=== PATIENT | female | born 2000 | race Caucasian/White ===

== ENCOUNTER 2018-09-12 17:46 | Day surgery (SDC) | payer OTHER ==
[~2018-09-12] VITALS: Ht 170.2 cm; Wt 86.2 kg
[2018-09-12] VITALS (8 sets, daily range): BP systolic 92–132; BP diastolic 55–87
--- OUTSIDE RECORDS SUMMARY | 2018-09-12 17:51 | XMS REPORT | Continuity of Care Document ---
Author Organization Unknown Address Unknown Allergies There is no data. Medications There is no data. Problems Date Dx Coded Attending Type Code Diagnosis Diagnosed By 06/05/2012 Behzad Majano MD Final 079.99 VIRAL INFECTION NOS 06/05/2012 Behzad Majano MD Admitting 780.60 FEVER NOS 06/05/2012 Behzad Majano MD 784.0 HEADACHE Procedures There is no data. Results There is no data. Encounters ACCT No. Visit Date/Time Discharge Status Pt. Type Provider Facility Loc./Unit Complaint [id number] 06/05/2012 20:36:00 06/05/2012 22:36:00 DIS Emergency Behzad Majano MD Via [facility] on [facility]
[2018-09-12] MEDS ORDERED: LACTATED RINGERS 1,000 ML IV ONE ×3 (18:18→22:47)
[2018-09-12 18:28] LABS: BASOPHILS % (AUTO) 0 % (0-10); EOSINOPHILS # (AUTO) 0.1 10^3/uL (0.0-0.3); EOSINOPHILS % (AUTO) 1 % (0-10); HEMATOCRIT 41 % (35-52); HEMOGLOBIN 13.3 G/DL (11.5-16.0); LYMPHOCYTES # (AUTO) 2.4 X 10^3 (1.0-4.0); LYMPHOCYTES % (AUTO) 19 % (12-44); MEAN CORPUSCULAR HEMOGLOBIN 27 PG (25-34); MEAN CORPUSCULAR HGB CONC 32 G/DL (32-36); MEAN CORPUSCULAR VOLUME 84 FL (80-99); MEAN PLATELET VOLUME 10.6 FL (7.4-10.4); MONOCYTES # (AUTO) 0.9 X 10^3 (0.0-1.0); MONOCYTES % (AUTO) 7 % (0-12); NEUTROPHILS # (AUTO) 9.3 X 10^3 (1.8-7.8); NEUTROPHILS % (AUTO) 73 % (42-75); PLATELET COUNT 344 10^3/uL (130-400); RED CELL DISTRIBUTION WIDTH 14.3 % (10.0-14.5); WHITE BLOOD COUNT 12.8 10^3/uL (4.3-11.0)
--- NOTE | 2018-09-12 18:36 | ED Abdominal Pain ---
General Chief Complaint: Abdominal/GI Problems Stated Complaint: ABD PAIN Nursing Triage Note: PT AMB TO TRIAGE WITH COMPLAINT OF RLQ PAIN. STATES STARTED LAST NIGHT. DENIES N/V. STATES SHE HAD A VERY SOFT BOWEL MOVEMENT LAST NIGHT. PT WAS TREATED FOR UTI 2 WEEKS AGO. STATES FINISHED TREATMENT. PT WAS SENT OVER FROM [facility]. LMP 09/10/18. Sepsis Screen: No Definite Risk Source of Information: Patient History of Present Illness Date Seen by Provider: September 12, 2018 Time Seen by Provider: 18:16 Initial Comments PT ARRIVES VIA POV --SENT HERE FROM [facility] PT C/O RLQ PAIN SINCE 2229 LAST NIGHT PAIN IS CONSTANT, WORSENED BY MOVEMENTS,WALKING, COUGHING, SNEEZING, ETC NO RADIATION OF PAIN STATES NOTHING IMPROVES PAIN--TOOK IBUPROFEN AT 0100 LAST NIGHT, AND WAS ABLE TO SLEEP FOR REST OF NIGHT C/O NAUSEA AND DECREASED APPETITE, NO VOMITING. ATE A FEW BITES OF SUSHI AROUND NOON, HAS ONLY HAD A SMALL AMOUNT OF TEA TODAY TO DRINK VOIDING A NORMAL AMOUNT AND NO URINARY SYMPTOMS NO FEVER HAD NORMAL BM AT MIDNIGHT LMP --BEGAN Wednesday09/10/18. 1 WEEK LATE ,NO CONTROL. WAS TREATED FOR UTI 2 WEEKS AGO AT [facility]. 08/27/18 TREATED WITH BACTRIM X 7 DAYS. THOSE SYMPTOMS RESOLVED. Allergies and Home Medications Allergies Coded Allergies: No Known Drug Allergies (Unverified , 09/12/18) Patient Home Medication List Home Medication List Reviewed: Yes Review of Systems Review of Systems Constitutional: see HPI; No fever; other (DECREASED APPETITE) Respiratory: No Symptoms Reported Cardiovascular: No Symptoms Reported Gastrointestinal: See HPI, Abdominal Pain; Denies Constipated, Denies Diarrhea ; Nausea, Poor Appetite, Poor Fluid Intake; Denies Vomiting Genitourinary: No Symptoms Reported, See HPI; Denies Flank Pain Musculoskeletal: no symptoms reported; No back pain Skin: no symptoms reported Psychiatric/Neurological: No Symptoms Reported Endocrine: No Symptoms Reported Hematologic/Lymphatic: No Symptoms Reported Past Ciwbmjc-Sdqsnd-Mtuaqv Hx Patient Social History Alcohol Use: Occasionally Uses Recreational Drug Use: No Smoking Status: Never a Smoker Recent Foreign Travel: No Contact w/Someone Who Travel: No Recent Infectious Disease Expo: No Recent Hopitalizations: No Immunizations Up To Date Tetanus Booster (TDap): Less than 5yrs PED Vaccines UTD: Yes Seasonal Allergies Seasonal Allergies: Yes Past Medical History Surgeries: Yes (SINUS SURGERY; BMT'S ; CLOSED REDUCTION LEFT WRIST) Adenoidectomy, Ear Surgery, Tonsillectomy Respiratory: No Cardiac: No Neurological: No : No Reproductive Disorders: No Genitourinary: No Gastrointestinal: No Musculoskeletal: No Endocrine: Yes (LEFT WRIST FX-S/P CLOSED REDUCTION) HEENT: Yes (SINUS PROBLEMS--S/P SURGERY) Chronic Ear Infection, Tonsilitis Cancer: No Psychosocial: No Integumentary: No Blood Disorders: No Physical Exam Vital Signs Vital Signs - First Documented 09/12/18 17:50 Temp 98.4 Pulse 105 Resp 20 B/P (MAP) 127/95 (106) Pulse Ox 97 O2 Delivery Room Air Capillary Refill : Less Than 3 Seconds Height/Weight/BMI Height: 5'7.00" Weight: 190lbs. oz. 86.201530dr; BMI Method:Stated General Appearance: WD/WN, no apparent distress, other (LAYING FLAT AND OUTSTRETCHED. 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, no motor/sensory deficits, alert, normal mood/affect, oriented x 3 Skin: normal color, warm/dry; No rash Progress/Results/Core Measures Results/Orders Lab Results Laboratory Tests Test 09/12/18 18:15 09/12/18 19:35 Range/Units White Blood Count 12.8 H 4.3-11.0 10^3/uL Red Blood Count 4.94 4.35-5.85 10^6/uL Hemoglobin 13.3 11.5-16.0 G/DL Hematocrit 41 35-52 % Mean Corpuscular Volume 84 80-99 FL Mean Corpuscular Hemoglobin 27 25-34 PG Mean Corpuscular Hemoglobin Concent 32 32-36 G/DL Red Cell Distribution Width 14.3 10.0-14.5 % Platelet Count 344 130-400 10^3/uL Mean Platelet Volume 10.6 H 7.4-10.4 FL Neutrophils (%) (Auto) 73 42-75 % Lymphocytes (%) (Auto) 19 12-44 % Monocytes (%) (Auto) 7 0-12 % Eosinophils (%) (Auto) 1 0-10 % Basophils (%) (Auto) 0 0-10 % Neutrophils # (Auto) 9.3 H 1.8-7.8 X 10^3 Lymphocytes # (Auto) 2.4 1.0-4.0 X 10^3 Monocytes # (Auto) 0.9 0.0-1.0 X 10^3 Eosinophils # (Auto) 0.1 0.0-0.3 10^3/uL Basophils # (Auto) 0.0 0.0-0.1 10^3/uL Sodium Level 140 135-145 MMOL/L Potassium Level 4.1 3.6-5.0 MMOL/L Chloride Level 107 98-107 MMOL/L Carbon Dioxide Level 24 21-32 MMOL/L Anion Gap 9 5-14 MMOL/L Blood Urea Nitrogen 10 7-18 MG/DL Creatinine 0.70 0.60-1.30 MG/DL Estimat Glomerular Filtration Rate > 60 BUN/Creatinine Ratio 14 Glucose Level 92 70-105 MG/DL Calcium Level 9.6 8.5-10.1 MG/DL Corrected Calcium 9.4 8.5-10.1 MG/DL Total Bilirubin 0.3 0.1-1.0 MG/DL Aspartate Amino Transf (AST/SGOT) 15 5-34 U/L Alanine Aminotransferase (ALT/SGPT) 18 0-55 U/L Alkaline Phosphatase 135 40-136 U/L Total Protein 8.1 6.4-8.2 GM/DL Albumin 4.3 3.2-4.5 GM/DL Amylase Level 34 25-125 U/L Lipase 15 8-78 U/L Serum Test, Qualitative NEGATIVE NEGATIVE Urine Color YELLOW Urine Clarity CLEAR Urine pH 6.5 5-9 Urine Specific [place] 1.010 L 1.016-1.022 Urine Protein NEGATIVE NEGATIVE Urine Glucose (UA) NEGATIVE NEGATIVE Urine Ketones NEGATIVE NEGATIVE Urine Nitrite NEGATIVE NEGATIVE Urine Bilirubin NEGATIVE NEGATIVE Urine Urobilinogen NORMAL NORMAL MG/DL Urine Leukocyte Esterase NEGATIVE NEGATIVE Urine RBC (Auto) 4+ H NEGATIVE Urine RBC 0-2 /HPF Urine WBC RARE /HPF Urine Squamous Epithelial Cells 5-10 /HPF Urine Crystals NONE /LPF Urine Bacteria NEGATIVE /HPF Urine Casts NONE /LPF Urine Mucus NEGATIVE /LPF Urine Culture Indicated NO My Orders Orders - YESSI LEMONS DO Urine Bedside (09/12/18 18:16) Ua Culture If Indicated (09/12/18 18:16) Amylase (09/12/18 18:18) Cbc With Automated Diff (09/12/18 18:18) Comprehensive Metabolic Panel (09/12/18 18:18) Hcg,Qualitative Serum (09/12/18 18:18) Lipase (09/12/18 18:18) Ed Iv/Invasive Line Start (09/12/18 18:18) Lactated Ringers (Lr 1000 Ml Iv Solution (09/12/18 18:18) Ct Abd/Pelv W (Appendicitis) (09/12/18 18:49) Acute Abd Series (09/12/18 18:49) Iohexol Injection (Omnipaque 350 Mg/Ml 1 (09/12/18 19:15) Received Contrast (Hold Metformin- Contr (09/12/18 19:15) Ketorolac Injection (Toradol Injection) (09/12/18 19:45) Medications Given in ED Current Medications Medications Dose Ordered Sig/Bhargav Route Start Time Stop Time Status Last Admin Dose Admin Iohexol 100 ml ONCE ONCE IV 09/12/18 19:15 09/12/18 19:29 DC 09/12/18 19:12 100 ML Ketorolac Tromethamine 30 mg ONCE ONCE IVP 09/12/18 19:45 09/12/18 19:46 DC 09/12/18 20:46 30 MG Lactated Ringer's 1,000 ml @ 0 mls/hr Q0M ONCE IV 09/12/18 18:18 09/12/18 18:20 DC 09/12/18 18:40 0 MLS/HR Vital Signs/I&O 09/12/18 17:50 Temp 98.4 Pulse 105 Resp 20 B/P (MAP) 127/95 (106) Pulse Ox 97 O2 Delivery Room Air Blood Pressure Mean: 106 Progress Progress Note : Progress Note PT DECLINES ANY PAIN MEDICATIONS. NO C/O NAUSEA DURING ER STAY Diagnostic Imaging Comments ABDOMEN XRAYS--NO ACUTE PROCESS CT ABDOMEN/PELVIS--+ APPENDICITIS, NO PERFORATION OR ABSCESS PER RADIOLOGIST REPORTS @ 1940 Reviewed: Reviewed by Me Departure Communication (Admissions) 1942--SPOKE WITH DR. GODFREY, WILL BE IN TO SEE PT 2107--DR. GODFREY AND OR STAFF HERE. Impression Primary Impression: Appendicitis Disposition: ADMITTED INPATIENT (TO SURGERY) Condition: Stable Admissions Decision to Admit Reason: Admit from ER (General) (TO SURGERY) Decision to Admit/Date: September 12, 2018 Time/Decision to Admit Time: 19:40 Departure-Patient Inst. Referrals: NO,LOCAL PHYSICIAN (PCP/Family) Primary Care Physician YESSI LEMONS DO September 12, 2018 18:36
[2018-09-12 18:55] LABS: ALANINE AMINOTRANSFERASE 18 U/L (0-55); ALBUMIN 4.3 GM/DL (3.2-4.5); ALKALINE PHOSPHATASE 135 U/L (40-136); AMYLASE 34 U/L (25-125); BILIRUBIN,TOTAL 0.3 MG/DL (0.1-1.0); BUN/CREATININE RATIO 14; CALCIUM 9.6 MG/DL (8.5-10.1); CARBON DIOXIDE 24 MMOL/L (21-32); CHLORIDE 107 MMOL/L (98-107); GFR ESTIMATED > 60; GLUCOSE 92 MG/DL (70-105); LIPASE 15 U/L (8-78); POTASSIUM 4.1 MMOL/L (3.6-5.0); SODIUM 140 MMOL/L (135-145); TOTAL PROTEIN 8.1 GM/DL (6.4-8.2)
[2018-09-12] MEDS ORDERED: HOLD METFORMIN - RECEIVED CONTRAST 20 ML VIAL IV SCH (19:15)
[2018-09-12] MEDS ORDERED: IOHEXOL 350 MG/ML 100 ML (OMNIPAQUE 350) VIAL IV ONE (19:15)
--- NOTE | 2018-09-12 19:18 | NUR ---
PT BACK FROM CT, REPORT OF HIVE TO ABDOMEN BY CT. TECH. ERP NOTIFIED.
--- NOTE | 2018-09-12 19:20 | NUR ---
ERP AT BEDSIDE, PT REPORTS 1 ITCHY SPOT TO RIGHT UPPER ABDOMEN. DENIES OTHER COMPLAINTS. DENIES NEEDS AT THIS TIME. IV FLUIDS INFUSING WITHOUT DIFFICULTY.
--- NOTE | 2018-09-12 19:30 | Diagnostic Imaging Report ---
CLINICAL INDICATION: Patient with right lower quadrant pain x1 day with nausea. EXAMS: X-ray of the chest PA view and x-ray of the abdomen supine and upright views. COMPARISONS: None. FINDINGS: LUNGS/ PLEURA: Lungs are clear. There is no pneumothorax. There is no pleural effusion. MEDIASTINUM: Unremarkable. PULMONARY VASCULATURE: Unremarkable. HEART: Unremarkable. BONES/ EXTRATHORACIC SOFT TISSUE: Unremarkable. ABDOMEN AND PELVIS: Unremarkable x-ray of the abdomen with nonobstructed bowel gas pattern. There is no evidence of abdominal free air. There is a small amount of stool seen within the right colon and transverse colon regions and small amount in the rectosigmoid region. There are no focal calcifications overlying the expected regions/ pathways of both kidneys, ureters, and bladder regions. IMPRESSION: 1: Unremarkable chest x-ray exam with no radiographic evidence of acute cardiopulmonary process. 2: Unremarkable x-ray of the abdomen. Dictated by: Dictated on workstation # [id number]
--- NOTE | 2018-09-12 19:31 | Diagnostic Imaging Report ---
PROCEDURE: CT abdomen and pelvis with contrast, rule out appendicitis. TECHNIQUE: Multiple contiguous axial images were obtained through the abdomen and pelvis after the administration of intravenous contrast. INDICATION: Right lower quadrant abdominal pain with nausea No focal hepatic, gallbladder, pancreatic, adrenal gland, splenic or renal abnormality is identified. There is a small hiatal hernia. There is no free fluid in the abdomen. Occasional mildly prominent mesenteric lymph nodes are noted. There is mild enlargement of the appendix with mild surrounding edema and/or inflammation. Probable dominant cyst is noted in the left ovary. Otherwise, the bladder is unremarkable in appearance. IMPRESSION: Findings are consistent with acute appendicitis without evidence of periappendiceal abscess or perforation. Dictated by: Dictated on workstation # [id number]
[2018-09-12 19:43] LABS: BILIRUBIN,URINE NEGATIVE (NEGATIVE); CLARITY,URINE CLEAR; COLOR,URINE YELLOW; GLUCOSE, URINE (UA) NEGATIVE (NEGATIVE); KETONES,URINE NEGATIVE (NEGATIVE); LEUKOCYTE ESTERASE ,URINE NEGATIVE (NEGATIVE); NITRITE,URINE NEGATIVE (NEGATIVE); PH,URINE 6.5 (5-9); PROTEIN,URINE NEGATIVE (NEGATIVE); UROBILINOGEN,URINE NORMAL (NORMAL)
[2018-09-12] MEDS ORDERED: KETOROLAC 30 MG/ML VIAL IVP ONE (19:45)
--- NOTE | 2018-09-12 19:45 | NUR ---
CONSENT OBTAINED FOR SURGERY. PT DENIES COMPLAINTS/NEEDS AT THIS TIME.
[2018-09-12 19:51] LABS: BACTERIA,URINE NEGATIVE /HPF; RBC,URINE 0-2 /HPF; WBC,URINE RARE /HPF
--- NOTE | 2018-09-12 19:55 | NUR ---
PT DECLINED TORADOL AT THIS TIME.
--- OUTSIDE RECORDS SUMMARY | 2018-09-12 19:55 | XMS REPORT | Continuity of Care Document ---
[...] Status Pt. Type Provider Facility Loc./Unit Complaint [id number] 06/05/2012 20:36:00 06/05/2012 22:36:00 DIS Emergency Behzad Majano MD Via [facility] on [facility]
--- NOTE | 2018-09-12 20:42 | NUR ---
Deep [employer] LIAISON HERE TO SEE PT.
--- NOTE | 2018-09-12 20:45 | NUR ---
HIVE ON ABDOMEN AFTER RETURNING FROM CT GONE.
[2018-09-12] MEDS ORDERED: HYDROmorphone 2 MG/ML VIAL (DILAUDID) ONE (20:56)
[2018-09-12] MEDS ORDERED: BUP/EPI 0.5% 1:200,000 (SENSORCAINE) 30 ML VIAL ONE (20:58)
[2018-09-12] MEDS ORDERED: LIDOCAINE 1% INJ 20 ML 20 ML VIAL ONE (20:58)
[2018-09-12] MEDS ORDERED: MEPERIDINE (DEMEROL) INJ 50 MG/ML IVP ONE (21:00)
[2018-09-12] MEDS ORDERED: morphine INJ 10 MG/ML 1ML (SYR OR VIAL) IVP ONE (21:00)
[2018-09-12] MEDS ORDERED: ONDANSETRON 4 MG/2 ML (SDV) Z0FRAN IVP PRN (21:00)
[2018-09-12] MEDS ORDERED: fentaNYL INJECTION 100 MCG/2 ML AMP IVP ONE (21:00)
[2018-09-12] MEDS ORDERED: MIDAZOLAM 2 MG/2 ML (VERSED) VIAL ONE (21:03)
--- NOTE | 2018-09-12 21:08 | NUR ---
OR STAFF HERE, DR GODFREY AT BEDSIDE.
[2018-09-12] MEDS ORDERED: ceFAZolin INJECTION 2,000 MG ONE (21:18)
--- NOTE | 2018-09-12 21:27 | Consultation (Surgery) ---
History of Present Illness History of Present Illness Patient Consulted On(joseph/time) 09/12/18 21:22 Time Seen by Provider: 21:01 History of Present Illness Surgery asked to consult regarding appendicitis. HPI per ED: PT ARRIVES VIA POV --SENT HERE FROM [facility] PT C/O RLQ PAIN SINCE 0 LAST NIGHT PAIN IS CONSTANT, WORSENED BY MOVEMENTS,WALKING, COUGHING, SNEEZING, ETC NO RADIATION OF PAIN STATES NOTHING IMPROVES PAIN--TOOK IBUPROFEN AT 0100 LAST NIGHT, AND WAS ABLE TO SLEEP FOR REST OF NIGHT C/O NAUSEA AND DECREASED APPETITE, NO VOMITING. ATE A FEW BITES OF SUSHI AROUND NOON, HAS ONLY HAD A SMALL AMOUNT OF TEA TODAY TO DRINK VOIDING A NORMAL AMOUNT AND NO URINARY SYMPTOMS NO FEVER HAD NORMAL BM AT MIDNIGHT When I spoke to pt she described pain that started around umbilicus and is now in RLQ. Pt rated pain at its worst as 7 out of 10, now a zero because of pain meds. Allergies and Home Medications Allergies Coded Allergies: No Known Drug Allergies (Unverified , 09/12/18) Patient Home Medication List Home Medication List Reviewed: Yes Past Usfmhjs-Meafoy-Gfwrhm Hx Patient Social History Alcohol Use: Occasionally Uses Recreational Drug Use: No Smoking Status: Never a Smoker Recent Foreign Travel: No Contact w/Someone Who Travel: No Recent Infectious Disease Expo: No Recent Hopitalizations: No Immunizations Up To Date Tetanus Booster (TDap): Less than 5yrs PED Vaccines UTD: Yes Seasonal Allergies Seasonal Allergies: Yes Surgeries History of Surgeries: Yes (SINUS SURGERY; BMT'S ; CLOSED REDUCTION LEFT WRIST) Surgeries: Adenoidectomy, Ear Surgery, Tonsillectomy Respiratory History of Respiratory Disorde: No Cardiovascular History of Cardiac Disorders: No Neurological History of Neurological Disord: No Reproductive System : No Hx Reproductive Disorders: No Genitourinary History of Genitourinary Disor: No Gastrointestinal History of Gastrointestinal Di: No Musculoskeletal History of Musculoskeletal Dis: No Endocrine History of Endocrine Disorders: Yes (LEFT WRIST FX-S/P CLOSED REDUCTION) HEENT History of HEENT Disorders: Yes (SINUS PROBLEMS--S/P SURGERY) HEENT Disorders: Chronic Ear Infection, Tonsilitis Cancer History of Cancer: No Psychosocial History of Psychiatric Problem: No Integumentary History of Skin or Integumenta: No Blood Transfusions History of Blood Disorders: No Family Medical History Significant Family History: Other Conditions/Hx (Pt states parents do not have HTN, DM, heart problems) Review of Systems-General Constitutional: No chills, No diaphoresis, No malaise, No weakness EENTM: No blurred vision, No double vision, No eye pain, No mouth swelling, No epistaxis Respiratory: No cough, No dyspnea on exertion, No hemoptysis Cardiovascular: No chest pain, No edema, No palpitations Gastrointestinal: abdominal pain; No jaundice, No melena, No vomiting Genitourinary: No dysuria, No frequency, No hematuria : No Musculoskeletal: No back pain, No gout, No joint pain, No muscle stiffness, No muscle cramps Skin: No change in color, No change in hair/nails Psychiatric/Neurological: Denies Anxiety, Denies Depressed, Denies Seizure, Denies Tingling Other pt denies any abnormal bleeding or bruising, no heat or cold intolerance Physical Exam-General Problems Physical Exam Vital Signs Vital Signs - First Documented 09/12/18 17:50 Temp 98.4 Pulse 105 Resp 20 B/P (MAP) 127/95 (106) Pulse Ox 97 O2 Delivery Room Air Capillary Refill : Less Than 3 Seconds General Appearance: WD/WN, mild distress Eyes: Bilateral Eye PERRL, Bilateral Eye EOMI HEENT: pharynx normal; No scleral icterus (R), No scleral icterus (L), No pale conjunctivae (R), No pale conjunctivae (L) Neck: non-tender, full range of motion, supple, normal inspection Respiratory: chest non-tender, lungs clear, normal breath sounds, no respiratory distress, no accessory muscle use Cardiovascular: regular rate, rhythm, no edema, no gallop, no JVD, no murmur Gastrointestinal: normal bowel sounds, soft, no organomegaly, no pulsatile mass , tenderness (RLQ), hernia (small umbilical) Back: no CVA tenderness, no vertebral tenderness Extremities: normal range of motion, non-tender, normal inspection, no pedal edema, no calf tenderness Neurologic/Psychiatric: 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 tested, no motor/sensory deficits, alert, normal mood/affect, oriented x 3 Skin: normal color, warm/dry Lymphatic: no adenopathy (neck, axilla or groin) Data Review Labs Laboratory Tests 09/12/18 18:15: White Blood Count 12.8H, Red Blood Count 4.94, Hemoglobin 13.3, Hematocrit 41, Mean Corpuscular Volume 84, Mean Corpuscular Hemoglobin 27, Mean Corpuscular Hemoglobin Concent 32, Red Cell Distribution Width 14.3, Platelet Count 344, Mean Platelet Volume 10.6H, Neutrophils (%) (Auto) 73, Lymphocytes (%) (Auto) 19 , Monocytes (%) (Auto) 7, Eosinophils (%) (Auto) 1, Basophils (%) (Auto) 0, Neutrophils # (Auto) 9.3H, Lymphocytes # (Auto) 2.4, Monocytes # (Auto) 0.9, Eosinophils # (Auto) 0.1, Basophils # (Auto) 0.0, Sodium Level 140, Potassium Level 4.1, Chloride Level 107, Carbon Dioxide Level 24, Anion Gap 9, Blood Urea Nitrogen 10, Creatinine 0.70, Estimat Glomerular Filtration Rate > 60, BUN/ Creatinine Ratio 14, Glucose Level 92, Calcium Level 9.6, Corrected Calcium 9.4 , Total Bilirubin 0.3, Aspartate Amino Transf (AST/SGOT) 15, Alanine Aminotransferase (ALT/SGPT) 18, Alkaline Phosphatase 135, Total Protein 8.1, Albumin 4.3, Amylase Level 34, Lipase 15, Serum Test, Qualitative NEGATIVE 09/12/18 19:35: Urine Color YELLOW, Urine Clarity CLEAR, Urine pH 6.5, Urine Specific [place] 1.010L, Urine Protein NEGATIVE, Urine Glucose (UA) NEGATIVE, Urine Ketones NEGATIVE, Urine Nitrite NEGATIVE, Urine Bilirubin NEGATIVE, Urine Urobilinogen NORMAL, Urine Leukocyte Esterase NEGATIVE, Urine RBC (Auto) 4+H, Urine RBC 0-2, Urine WBC RARE, Urine Squamous Epithelial Cells 5-10, Urine Crystals NONE, Urine Bacteria NEGATIVE, Urine Casts NONE, Urine Mucus NEGATIVE, Urine Culture Indicated NO Assessment/Plan Assessment/Plan Assessment/Plan Acute Appendicitis Plan is NPO, IVF, IV pain control, 2 grams Ancef prior to OR. Laparoscopic appendectomy possible open. Discussed risks and complications; not limited to pain, bleeding, infection, scar, damage to bowel and need for further procedure. All questions answered to their satisfaction. ALLEN GODFREY DO September 12, 2018 21:27
[2018-09-12] MEDS ORDERED: ceFAZolin 2 GM/50 ML NS 50 ML IV ONE (21:30)
[2018-09-12] MEDS: LACTATED RINGERS 1,000 ML IV PRN ×2 (21:30→22:20)
[2018-09-12] MEDS ORDERED: ROCURONIUM 10 MG/ML 5 ML SYRINGE IV ONE (21:46)
[2018-09-12] MEDS ORDERED: proPOfol 200 MG/20 ML (DIPRIVAN) VIAL IV ONE (21:46)
[2018-09-12] MEDS ORDERED: SEVOFLURANE (ULTANE) 15 ML INHAL SOLN ONE ×5 (21:46→22:26)
[2018-09-12] MEDS ORDERED: LIDOCAINE PF 2% 5 ML (XYLOCAINE) VIAL ONE (21:46)
[2018-09-12] MEDS ORDERED: ONDANSETRON 4 MG/2 ML (SDV) Z0FRAN ONE (21:46)
--- NOTE | 2018-09-12 22:37 | Progress Note-Post Operative ---
Post-Operative Progess Note Surgeon (s)/Mover (s) Surgeon ALLEN GODFREY DO Mover: none Pre-Operative Diagnosis Acute appy Post-Operative Diagnosis same Procedure & Operative Findings Date of Procedure 09/12/18 Procedure Performed/Findings Lap appy Anesthesia Type GET Estimated Blood Loss Estimated blood loss (mL): scant Specimens/Packing Specimens Removed ALLEN Combs DO September 12, 2018 22:37
[2018-09-12] MEDS ORDERED: ACHD5005 PO (22:38)
--- NOTE | 2018-09-12 22:39 | Discharge Inst-Surgical ---
Discharge Inst-Surgical Depart Medication/Instructions New, Converted or Re-Newed RX: RX Given to Pt/Family Patient Instructions Follow up Appt: Make appointment for 1 week. [phone] Instructions: No lifting greater than 20 pounds. No strenuous activity. May shower in 24 hours, no tub bath or soaking. Use incentive spirometer at home as directed. No Smoking Skin/Wound Care: May remove bandages in am. You need to leave the Dermabond on incision it will fall off on it's own. Symptoms to Report: Appetite Changes, Extremity Discoloration, Numbness/Tingling, Swelling Increased , Bleeding Excessive, Eyesight Changes, Pain Increased, Urine Color Change, Constipation(Persistent), Fever over 101 degree F, Pain/Pressure in chest, Urinating Difficulty, Cough Up/Vomit Blood, Heart Beat Irreg/Pounding, Pain/ Pressure in jaw, Cramps in feet or legs, Lightheadedness, Pain/Pressure in shoulder, Diarrhea(Persistent), Memory Changes Suddenly, Questions/Concerns, Weight gain consecutive days, Dizziness/Fainting, Nausea/Vomiting, Shortness of Breath, Weight gain over 2 pounds If questions or concerns contact your physician Or seek help at emergency department. Activity Activity as Tolerated: Yes Activity Instructions: Avoid Stress to Incision Driving Instructions: No Driving/Refer to Dr. Lindsay Discharge Diet: No Restrictions Diet After 24 Hours: Clear Liquid if Nauseous If Any Problems/Questions/Issu: Contact Your Physician, Go to Emergency Room Skin/Wound Care Infection Signs and Symptoms: Increased Redness, Foul Odor of Wound, Increased Drainage, Skin Itchy or Has a Rash, Increased Swelling, Temperature Above 101 F Wound Care Comment: use heating pad to shoulder or neck tonight for pain Bathing Instructions: Shower Stitches/Dora/Dermabond Dis: Dermabond Ice Pack: Ice On and Off Site (incisions as needed for pain) ALLEN GODFREY DO September 12, 2018 22:39
[2018-09-13] MEDS ORDERED: RX-HYDROCODONE/APAP 5/325 MG #4 TAB PK PO ONE (00:14)
[2018-09-13 00:44] VITALS: BP 97/72
--- NOTE | 2018-09-13 13:39 | OPERATIVE REPORT ---
DATE OF SERVICE: 09/12/2018 PREOPERATIVE DIAGNOSIS: Acute appendicitis. POSTOPERATIVE DIAGNOSIS: Acute appendicitis. PROCEDURE: Laparoscopic appendectomy. SURGEON: Hola Covarrubias DO. SPLICING MACHINE OPERATOR: None. ANESTHESIA: General endotracheal tube. SPECIMEN: Appendix. BLOOD LOSS: Scant. FLUIDS: Per anesthesia. POSTOPERATIVE CONDITION: Stable. INDICATION FOR PROCEDURE: The patient is a 18-year-old female who has been having abdominal pain started umbilical, went to the right lower quadrant and a CAT scan showed appendicitis. Mildly elevated white count. FINDINGS: The patient had some fibrinous material around the appendix. It looked like it was acute appendicitis, had not perforated. PROCEDURE NOTE: After informed consent was obtained, the patient was brought to the operating room, placed on the table in the supine position. She was sterilely prepped and draped in normal fashion. Local lidocaine was used to infiltrate the skin above the umbilicus. I then made an incision with #11 blade, carried down through the skin into subcutaneous tissue, then deepened down to subcutaneous tissue with Bovie electrocautery down to the fascia. Fascia incised with Bovie electrocautery, then bluntly entered the abdomen, swept a finger around, placed 0 Vicryl [id number] suture and then placed 11 mm trocar port under direct visualization. Created pneumoperitoneum and placed 2 more ports in normal fashion using local lidocaine, 11-blade for stab incision and Versed system, all done under direct visualization, one suprapubically and one in left lower quadrant. The patient then placed slightly Trendelenburg, rotated little bit to the left, able to visualize the appendix. It was mildly fibrinous, little bit erythematous, had not perforated. Able to grasp this and start taking this off of the mesoappendix and coming through the mesoappendix at the cecum, grasping with the LigaSure, clamping, coagulating and transecting and then using some blunt dissection. Finally, able to get through here and under the appendix and then continued out the mesoappendix with LigaSure, clamping, coagulating and transecting in this fashion, completely freeing up the appendix, was just attached to the cecum. Switched to 5 mm camera, brought in the Endo-DUC, clamped across the base of the appendix and clamped and fired, thereby transecting the appendix, removed this. Placed a bag in the abdomen, placed the appendix in the bag and then removed this through a supraumbilical incision, placed the port back in the abdomen, copiously irrigated with normal saline. Hemostasis obtained. Looked around, did not see any other obvious pathology. Took a picture of the right and left ovary as well as the gallbladder. At this point, then placed the patient in supine, removed all ports under direct visualization, allowed pneumoperitoneum to escape. Closed the supraumbilical incision, closing the fascia with 0 Vicryl suture previously placed. Copiously irrigated all incisions with normal saline, closing the 2 small 5 mm incisions with single interrupted 4-0 undyed Monocryl subcuticular stitch. Closed the supraumbilical incision with 3 interrupted 4-0 undyed Monocryl subcuticular stitch. The area was cleaned and dried. Dermabond placed as well as Band-Aids. The patient then transferred to recovery room in stable condition. Sponge, instrument and needle count correct at the end of the case. Job ID: [id number] DocumentID: [id number] Dictated Date: 09/13/2018 09:11:01 Event Promotions Coordinator Date: 09/13/2018 13:38:28 Dictated By: HOLA COVARRUBIAS DO
== END 2018-09-13 00:35 | disposition home or self-care (01) ==
LOC: ER 17:47 → SDC 19:52
PROVIDERS: ATTEND Surgery
DX: K35.80 Unspecified acute appendicitis (principal)
CPT/HCPCS: 36415; 74022; 74177; 80053; 81000; 82150; 83690; 84703; 85025